=== PATIENT | female | born 1995 | race Caucasian/White ===

== ENCOUNTER 2018-12-07 09:49 | Inpatient (IN) | payer MEDICAID, OTHER ==
[2018-12-07 10:20] VITALS: BMI 21.7
[2018-12-07] MEDS ORDERED: HYDROcodone/Acetaminophen 5/325 mg Tablet PO PRN ×3 (10:39→16:37)
[2018-12-07] MEDS ORDERED: Methylergonovine 0.2 MG/ML VIAL IM PRN (10:39)
[2018-12-07] MEDS ORDERED: Lidocaine 1% (PF) 30 ML VIAL SC PRN (10:39)
[2018-12-07] MEDS ORDERED: Misoprostol 200 MCG TAB PR PRN (10:39)
[2018-12-07] MEDS ORDERED: Carboprost 250 MCG/ML AMP IM PRN (10:39)
[2018-12-07] MEDS ORDERED: NS / Oxytocin 40 units/1000ml 1,000 ML IV PRN (10:39)
[2018-12-07] MEDS ORDERED: Ibuprofen 800 MG TAB PO PRN (10:39)
[2018-12-07] MEDS ORDERED: hydrALAZINE 20 MG/ML VIAL SLOW IVP PRN ×2 (10:39→16:37)
[2018-12-07] MEDS ORDERED: Promethazine HCl 25 MG/ML VIAL IM PRN ×2 (10:39→16:37)
[2018-12-07] MEDS ORDERED: Diphenoxylate HCl/Atropine Tablet PO PRN (10:39)
[2018-12-07] MEDS ORDERED: Butorphanol Tartrate 1 MG/ML VIAL SLOW IVP PRN (10:39)
[2018-12-07] MEDS ORDERED: Ondansetron PF 4 MG/2 ML Vial IVP PRN ×2 (10:39→16:37)
[2018-12-07] MEDS ORDERED: NS w/ Oxytocin 10 units 500 ML IV SCH ×2 (10:45)
[2018-12-07 13:47] LABS: Hemoglobin 7.9 g/dL (12.0-16.0); Mean Corpuscular HGB CONC 30.3 g/dL (32.0-36.0); Mean Corpuscular Hemoglobin 21.4 pg (27.0-31.0); Mean Corpuscular Volume 70.6 fL (78.0-98.0); Mean Platelet Volume 10.7 fL (7.4-10.4); Platelet Count 236 thou/uL (130-400); RBC Distribution Width 17.5 % (11.5-14.5); Red Blood Cell (RBC) Count 3.68 mill/uL (4.20-5.40); White Blood Cell (WBC) Count 8.4 thou/uL (4.8-10.8)
[2018-12-07 14:25] LABS: HBSAg Index 0.14 S/CO (0-0.99); Hep B Surf Ag Non-Reactive S/CO (NonReactive)
[2018-12-07 14:30] LABS: Syphilis Antibody Nonreactive (Nonreactive); Syphilis Antibody Index 0.05 S/CO (<1.00 Non-Reactive)
[2018-12-07] MEDS ORDERED: Preparation H Ointment 28 GM TUBE PR PRN (16:37)
[2018-12-07] MEDS ORDERED: Adacel (T-DAP) 0.5 ML SYRINGE IM ONE (16:37)
[2018-12-07] MEDS ORDERED: Lanolin Ointment 7 GM TUBE TOP PRN (16:37)
[2018-12-07] MEDS ORDERED: Milk Of Magnesia 30 ML UDCUP PO PRN (16:37)
[2018-12-07] MEDS ORDERED: Bisacodyl 10 MG SUPP PR PRN (16:37)
[2018-12-07] MEDS ORDERED: Benzocaine-Menthol 82.5 ML CAN TOP PRN (16:37)
[2018-12-07] MEDS: Ibuprofen 800 MG TAB PO SCH (17:37)
[2018-12-07] MEDS: NS / Oxytocin 40 units/1000ml 1,000 ML IV SCH ×2 (17:41→17:45)
[2018-12-07] MEDS ORDERED: Methylergonovine 0.2 MG/ML VIAL ONE (17:53)
[2018-12-07] MEDS ORDERED: Sodium Chloride 0.9% 10 ML ONE (18:10)
[2018-12-07] MEDS ORDERED: Methylergonovine 0.2 MG/ML VIAL IM SCH (18:15)
[2018-12-07] MEDS: Docusate Calcium (SURFAK) 240 MG CAP PO SCH (21:11)
[2018-12-08] MEDS: Ibuprofen 800 MG TAB PO SCH ×4 (05:33→22:20)
[2018-12-08 06:33] LABS: Hemoglobin 4.8 g/dL (12.0-16.0); Mean Corpuscular HGB CONC 30.6 g/dL (32.0-36.0); Mean Corpuscular Hemoglobin 21.7 pg (27.0-31.0); Mean Corpuscular Volume 70.8 fL (78.0-98.0); Mean Platelet Volume 9.7 fL (7.4-10.4); Platelet Count 170 thou/uL (130-400); Red Blood Cell (RBC) Count 2.22 mill/uL (4.20-5.40); White Blood Cell (WBC) Count 9.5 thou/uL (4.8-10.8)
[2018-12-08] MEDS: Docusate Calcium (SURFAK) 240 MG CAP PO SCH ×2 (09:59→22:20)
[2018-12-08] MEDS: Prenatal Vitamin 1 TAB PO SCH (09:59)
[2018-12-09 05:01] LABS: Hemoglobin 7.8 g/dL (12.0-16.0); Mean Corpuscular HGB CONC 33.4 g/dL (32.0-36.0); Mean Corpuscular Hemoglobin 25.8 pg (27.0-31.0); Mean Corpuscular Volume 77.3 fL (78.0-98.0); Mean Platelet Volume 8.8 fL (7.4-10.4); Platelet Count 163 thou/uL (130-400); RBC Distribution Width 18.7 % (11.5-14.5); Red Blood Cell (RBC) Count 3.04 mill/uL (4.20-5.40); White Blood Cell (WBC) Count 11.1 thou/uL (4.8-10.8)
[2018-12-09] MEDS: Docusate Calcium (SURFAK) 240 MG CAP PO SCH (09:38)
[2018-12-09] MEDS: Prenatal Vitamin 1 TAB PO SCH (09:38)
[2018-12-09 10:14] VITALS: BP 123/66; TEMP 98.7
== END 2018-12-09 14:00 | disposition home or self-care (01) | DRG 806 ==
LOC: L&D-LIB 09:49 → 3SW 17:40
PROVIDERS: ADMIT Family Medicine; ATTEND Family Medicine
PROC: 10E0XZZ Delivery of Products of Conception, External Approach (ICD-10-PCS; principal; 2018-12-07)
PROC: 30233N1 Transfusion of Nonautologous Red Blood Cells into Peripheral Vein, Percutaneous Approach (ICD-10-PCS; 2018-12-08)
DX: O99.02 Anemia complicating childbirth (principal); O72.1 Other immediate postpartum hemorrhage; Z37.0 Single live birth; D50.9 Iron deficiency anemia, unspecified
CPT/HCPCS: 36415; 36430; 85027; 86780; 86850; 86900; 86901; 87340; 90715; J2001; J2210; P9016

== ENCOUNTER 2019-11-30 09:44 | Outpatient (CLI) | payer OTHER ==
--- NOTE | 2019-11-30 10:34 | ULT ---
Obstetrical ultrasound: 11/30/2019 COMPARISON: None HISTORY: 23-year-old female, evaluate size and dates TECHNIQUE: Multiplanar grayscale sonographic imaging of the gravid uterus obtained. FINDINGS: Single intrauterine gestation noted with transverse lie, head to the maternal left. u rinary bladder, umbilical cord, umbilical cord insertion site, stomach, kidneys, spine, and nose/lips appear unremarkable. Placenta located anteriorly with no evidence for previa or abruption. A three-vessel cord is noted. Amniotic fluid index is 18.5 cm. heart rate is 144 bpm. Four-chamber heart view appears normal. Intracranial contents appear wit hin normal limits. Cervical length is 3.5 cm. biometry: BPD 4.8 cm 20 weeks 3 days HC 18.3 cm 20 weeks 5 days Abdominal circumference 16.2 cm 21 weeks 3 days Femur length 3.4 cm 20 weeks 4 days Average age based on ultrasound is 20 weeks 6 days. Estimated date of delivery is 04/12/2020 Estimated weight is 386 g +/- 56 g. IMPRESSION: Intrauterine gestation as detailed above.
== END 2019-11-30 09:45 | disposition home or self-care (01) ==
LOC: BICULT 09:44
PROVIDERS: ATTEND Family Medicine
DX: O09.892 Supervision of other high risk pregnancies, second trimester (principal); Z3A.20 20 weeks gestation of pregnancy
CPT/HCPCS: 76805

== ENCOUNTER 2020-04-02 10:58 | Inpatient (IN) | payer OTHER ==
[2020-04-02] MEDS ORDERED: Ibuprofen 800 MG TAB PO PRN (11:48)
[2020-04-02] MEDS ORDERED: Promethazine HCl 25 MG/ML VIAL IM PRN ×2 (11:48→21:40)
[2020-04-02] MEDS ORDERED: Carboprost 250 MCG/ML AMP IM PRN (11:48)
[2020-04-02] MEDS ORDERED: Methylergonovine 0.2 MG/ML VIAL IM PRN (11:48)
[2020-04-02] MEDS ORDERED: Lidocaine 1% (PF) 30 ML VIAL SC PRN (11:48)
[2020-04-02] MEDS ORDERED: Butorphanol Tartrate 1 MG/ML VIAL SLOW IVP PRN (11:48)
[2020-04-02] MEDS ORDERED: hydrALAZINE 20 MG/ML VIAL SLOW IVP PRN ×2 (11:48→21:40)
[2020-04-02] MEDS ORDERED: Diphenoxylate HCl/Atropine Tablet PO PRN (11:48)
[2020-04-02] MEDS ORDERED: Ondansetron PF 4 MG/2 ML Vial IVP PRN ×2 (11:48→21:40)
[2020-04-02] MEDS ORDERED: Misoprostol 200 MCG TAB PR PRN (11:48)
[2020-04-02] MEDS ORDERED: HYDROcodone/Acetaminophen 5/325 mg Tablet PO PRN ×3 (11:48→21:40)
[2020-04-02] MEDS ORDERED: NS / Oxytocin 40 units/1000ml 1,000 ML IV PRN (11:48)
[2020-04-02] MEDS ORDERED: Penicillin G Potassium 5 MILL.UNITS in Sodium Chloride 0.9% 100 ML IVPB SCH (12:00)
[2020-04-02 12:24] LABS: Hemoglobin 9.5 g/dL (12.0-16.0); Mean Corpuscular HGB CONC 30.6 g/dL (32.0-36.0); Mean Corpuscular Hemoglobin 21.8 pg (27.0-31.0); Mean Corpuscular Volume 71.2 fL (78.0-98.0); Platelet Count 221 thou/uL (130-400); RBC Distribution Width 16.6 % (11.5-14.5); Red Blood Cell (RBC) Count 4.38 mill/uL (4.20-5.40); White Blood Cell (WBC) Count 10.2 thou/uL (4.8-10.8)
[2020-04-02 12:58] LABS: Syphilis Antibody Nonreactive (Nonreactive); Syphilis Antibody Index 0.04 S/CO (<1.00 Non-Reactive)
[2020-04-02 13:45] VITALS: BMI 23.8
[2020-04-02 14:48] LABS: HBSAg Index 0.45 S/CO (0-0.99); Hep B Surf Ag Non-Reactive S/CO (NonReactive)
[2020-04-02] MEDS: Penicillin G 2.5 MILL.units 2.5 MILL.UNITS in Premix Bag 1 BAG IVPB SCH ×3 (15:55→21:00)
[2020-04-02] MEDS ORDERED: Famotidine 20 MG TAB PO SCH (16:30)
[2020-04-02 18:09] LABS: SARS-CoV-2 MS2 Positive; SARS-CoV-2 N Gene Negative; SARS-CoV-2 S Gene Negative; SARS-CoV-2 by NAA Not Detected (NotDetected); SARS-CoV-2 orf1ab Negative
[2020-04-02] MEDS ORDERED: NS w/ Oxytocin 30 units 500 ML ONE (18:16)
[2020-04-02] MEDS: Lactated Ringer's 1,000 ML IV SCH ×2 (18:29→21:00)
[2020-04-02] MEDS ORDERED: Lidocaine 1% (PF) 30 ML VIAL ONE (19:34)
[2020-04-02] MEDS ORDERED: Lanolin Ointment 7 GM TUBE TOP PRN (21:40)
[2020-04-02] MEDS ORDERED: NS / Oxytocin 40 units/1000ml 1,000 ML IV SCH (21:40)
[2020-04-02] MEDS ORDERED: Bisacodyl 10 MG SUPP PR PRN (21:40)
[2020-04-02] MEDS ORDERED: Milk Of Magnesia 30 ML UDCUP PO PRN (21:40)
[2020-04-02] MEDS ORDERED: diphenhydrAMINE 25 MG CAP PO PRN (21:40)
[2020-04-03] MEDS: Ibuprofen 800 MG TAB PO SCH ×5 (01:07→23:37)
[2020-04-03] MEDS: Ferrous Sulfate 325 MG TAB PO SCH ×2 (07:24→17:16)
[2020-04-03] MEDS: Docusate Calcium (SURFAK) 240 MG CAP PO SCH ×2 (07:24→19:58)
[2020-04-03] MEDS ORDERED: Adacel (T-DAP) 0.5 ML SYRINGE IM ONE (09:00)
[2020-04-04] MEDS: Ibuprofen 800 MG TAB PO SCH ×2 (03:52→14:29)
[2020-04-04 08:05] VITALS: BP 109/57; TEMP 98.2
[2020-04-04] MEDS: Ferrous Sulfate 325 MG TAB PO SCH ×2 (09:05→16:31)
[2020-04-04] MEDS: Docusate Calcium (SURFAK) 240 MG CAP PO SCH (09:05)
== END 2020-04-04 16:35 | disposition home or self-care (01) | DRG 807 ==
LOC: L&D-LIB 10:58 → L&D 18:19 → 3SW 22:51
PROVIDERS: ADMIT Family Medicine; ATTEND Family Medicine
PROC: 10E0XZZ Delivery of Products of Conception, External Approach (ICD-10-PCS; principal; 2020-04-02)
DX: O99.824 Streptococcus B carrier state complicating childbirth (principal); Z37.0 Single live birth; Z20.822 Contact with and (suspected) exposure to COVID-19; O69.1XX0 Labor and delivery complicated by cord around neck, with compression, not applicable or unspecified; Z3A.38 38 weeks gestation of pregnancy
CPT/HCPCS: 85027; 86780; 86850; 86900; 86901; 87340; 87635; 99285; J2540; J2590; J3490; J7030; U0003